=== PATIENT | female | born 1970 | race Caucasian/White ===

== ENCOUNTER 2021-10-24 16:22 | Outpatient (CLI) | payer MEDICAID, SELFPAY ==
[2021-10-24 16:34] VITALS: BP 124/77; PULSE 99; RESP 18; TEMP 36.9; O2SAT 97; BMI 34.5
[2021-10-24] MEDS: 0.9% Saline Lock 10 ML Syringe IV (16:40)
[2021-10-24 17:12] VITALS: BP 102/70; PULSE 80; RESP 16; TEMP 36.9; O2SAT 97
[2021-10-24 18:02] VITALS: BP 104/71; PULSE 78; RESP 18; TEMP 36.6; O2SAT 97
== END 2021-10-24 18:12 | disposition home or self-care (01) ==
LOC: MS3OUT 16:22 → MS3 16:23
PROVIDERS: Referring Provider Nurse Practitioner Adult Health; Visit Provider Nurse Practitioner Adult Health
DX: U07.1 COVID-19 (principal)
CPT/HCPCS: J7050; M0245; Q0245; A4216